=== PATIENT | male | born 1975 | race African-American/Black ===

== ENCOUNTER 2019-08-02 20:12 | Observation (INO) | payer OTHER, SELFPAY ==
[2019-08-02 20:13] VITALS: BP 175/119; PULSE 107; RESP 20; TEMP 36.7; O2SAT 100
--- NOTE | 2019-08-02 20:40 | ED_ITS ---
I attest that this documentation has been prepared under the direction and in the presence of Yanna Ojeda MD. Artem Myles Scribe 08/02/19;20:40 HPI - General Adult General Chief complaint: Unspecified Stated complaint: hallucinations Time Seen by Provider: 08/02/19 20:39 Source: patient and RN notes reviewed Mode of arrival: EMS Limitations: no limitations History of Present Illness HPI narrative: Pt is a 44 y/o male presenting to the ED via EMS c/o possible hallucination. Pt reports he called the Police stating someone was chasing him with a gun. Pt notes Police were unable to find evidence of anyone chasing the pt and were concerned the pt was hallucinating. Pt states he has had 1 episode of hearing voices in his head previously, but is unable to state how long ago that incident occurred. Pt states he does not have a Hx of Pyschiatric problems. Pt reports fatigue, tremor for a few days, and decreased PO intake of food and fluids due to being busy , but denies cough, ST, or rhinorrhea. Pt notes he currently resides at a homeless group home and reports he has been homeless for a few months. Pt reports Hx's of Sz's in which he is no longer taking his medications for, asthma, and rt hip replacement. Pt notes he consumes various types of alcohol, but notes he does not drink every day and last consumed alcohol 2 days ago. Pt denies a Hx of drug use and states he is not a smoker. Related Data Home Medications Medication Instructions Recorded Confirmed Unable to Obtain Home Medications 08/02/19 08/02/19 Allergies Allergy/AdvReac Type Severity Reaction Status Date / Time No Known Allergies Allergy Verified 08/02/19 20:17 Course Vital Signs Vital signs: Vital Signs Temperature 36.7 C 08/02/19 20:13 Pulse Rate 107 H 08/02/19 20:13 Respiratory Rate 20 08/02/19 20:13 Blood Pressure 175/119 H 08/02/19 20:13 Pulse Oximetry 100 08/02/19 20:13 Temperature 36.7 C 08/02/19 20:13 Pulse Rate 107 H 08/02/19 20:13 Respiratory Rate 20 08/02/19 20:13 Blood Pressure 175/119 H 08/02/19 20:13 Pulse Oximetry 100 08/02/19 20:13 Medical Decision Making Vital Signs Vital Signs: Vital Signs Temperature 36.7 C 08/02/19 20:13 Pulse Rate 107 H 08/02/19 20:13 Respiratory Rate 08/02/19 20:13 Blood Pressure 175/119 H 08/02/19 20:13 Pulse Oximetry 100 08/02/19 20:13 Temperature 36.7 C 08/02/19 20:13 Pulse Rate 107 H 08/02/19 20:13 Respiratory Rate 08/02/19 20:13 Blood Pressure 175/119 H 08/02/19 20:13 Pulse Oximetry 100 08/02/19 20:13 Discharge Plan Discharge Prescriptions: No Action Unable to Obtain Home Medications RF: 0
--- NOTE | 2019-08-02 20:52 | ECG_ITS ---
Measurements Intervals [place] Rate: 107 P: 52 NM: 145 QRS: 32 QRSD: 85 T: 43 QT: 295 QTc: 395 Interpretive Statements SINUS TACHYCARDIA BASELINE ARTIFACT- I, III, AVL ABNORMAL ECG Electronically Signed On 08-03-2019 8:23:37 CDT by Dereck Almodovar D.O.
--- NOTE | 2019-08-02 20:57 | ED.PSYCH ---
HPI - Psych General Chief Complaint: Unspecified Stated Complaint: hallucinations Time Seen by Provider: 08/02/19 20:39 Source: patient and RN notes reviewed Mode of arrival: EMS Limitations: no limitations History of Present Illness HPI Narrative: Pt is a 44 y/o male presenting to the ED via EMS c/o possible hallucination. Pt reports he called the Police stating someone was chasing him with a gun earlier today. Pt notes Police were unable to find evidence of anyone chasing the pt and were concerned the pt was hallucinating. Pt states he has had 1 episode of hearing voices in his head previously, but is unable to state how long ago that incident occurred. Pt states he does not have a Hx of Pyschiatric problems. Pt reports fatigue, tremor for a few days, and decreased PO intake of food and fluids due to being busy , but denies cough, ST, or rhinorrhea. Pt notes he currently resides at a homeless [place] [facility] and reports he has been homeless for a few months. Pt reports Hx's of Sz's in which he is no longer taking his medications for, asthma, and rt hip replacement. Pt notes he consumes various types of alcohol, but notes he does not drink every day and last consumed alcohol 2 days ago. Pt denies a Hx of drug use and states he is not a smoker. Onset (ago): unknown (Earlier today) Associated psychiatric symptoms: auditory hallucinations Associated symptoms: other (Fatigue; Tremor; Decreased PO intake of food and fluids) Related Data Home Medications Medication Instructions Recorded Confirmed albuterol sulfate 1 puff INHALATION QID PRN 08/03/19 08/03/19 Allergies Allergy/AdvReac Type Severity Reaction Status Date / Time cheese AdvReac Mild Nausea and Verified 08/03/19 04:07 Vomiting Review of Systems Review of Systems: All systems reviewed & are unremarkable except as noted in HPI and below Constitutional: Constitutional: Reports fatigue and Reports other (Decreased PO intake of food and fluids) ENT: Denies sore throat and Denies other (Rhinorrhea) Respiratory: Respiratory: Denies cough Neurologic: Reports tremor(s) Psychiatric: Psychiatric: Reports auditory hallucinations (Hearing voices) and Reports visual hallucinations PMFSH Past Medical History Medical History Asthma Seizures Surgical History Surgical History History of right hip replacement Social History Social History Smoking status: Never smoker Second hand tobacco smoke exposure: No Alcohol intake: current Drinks per week: 4 Substance use: former Substance use type: marijuana Gender identity (if verbalized by the patient): Male Spiritual care concerns: No Agree to blood products: Yes Exam Const: General: cooperative, no acute distress and alert Nutritional Appearance: well nourished Limitations: no limitations HENMT: Mouth: Yes lip normal and Yes moist mucous membranes Resp: Effort & Inspection: normal respiratory effort Auscultation: clear to auscultation bilaterally Cardio: Rate: tachycardic (Mildly) Rhythm: regular rhythm Heart sounds: no murmurs GI: GI Palp: Yes Soft to palpation and No Tenderness to palpation present (GI) Auscultation: normal bowel sounds Skin: General skin exam: normal color Neuro: General: patient oriented x3 Cognition (Neuro): normal cognition Speech: normal speech Motor exam (neuro): Tremors during motor activity present (Mild) Extrem: General: normal to inspection, full ROM and no clubbing, cyanosis or edema Psych: Speech and movement: Clear speech present Affect: Anxious affect present (Slightly) and Blunted affect present Attitude: cooperative Course Course Emergency Course: Patient given Ativan and IV fluids. Blood pressure and heart rate improved with Ativan. On further questioning, patient does report drinking pretty heavily before being taken into po
[2019-08-02 21:14] LABS: Basophils Percent Auto 0.3 % (0.2-1.2); Hemoglobin 13.2 g/dL (14.0-18.0); Immature Granulocyte Absolute 0.01 K/mm3 (0.00-0.031); Immature Granulocyte Percent A 0.1 % (0-0.5); Lymphocytes Absolute Auto 0.63 K/mm3 (0.9-3.2); Lymphocytes Percent Auto 8.3 % (18.3-44.2); Mean Corpuscular HGB Conc 33.8 g/dl (32-36); Mean Corpuscular Hemoglobin 29.9 pg (26-34); Mean Corpuscular Volume 88.4 fl (80-100); Mean Platelet Volume 11.4 fl (7.4-10.4); Monocytes Absolute Auto 0.6 K/mm3 (0.1-0.6); Monocytes Percent Auto 8.2 % (2.6-8.5); Neutrophils Absolute Auto 6.3 K/mm3 (1.3-6.7); Neutrophils Percent Auto 83.1 % (45.5-73.1); Platelet Count Result 78 k/mm3 (150-375); Red Blood Count 4.41 M/mm3 (4.6-6.20); Red Cell Distribution Width 12.3 % (11.5-14.5); White Blood Count 7.6 K/mm3 (4.5-10.0)
[2019-08-02] MEDS: LORAZEPAM INJ 2 MG/ML VIAL 1 MG IV PUSH ×2 (21:18→23:32)
[2019-08-02] MEDS: LACTATED RINGERS 1,000 ML 999 ML IV CONT ×2 (21:19→23:32)
[2019-08-02 21:21] LABS: Prothrombin Time 12.8 Seconds (11.1-14.7)
[2019-08-02 21:22] LABS: Partial Thromboplastin Time 23.8 SECONDS (22.3-36.8)
[2019-08-02 22:31] LABS: Ethanol < 10 mg/dL (<10)
[2019-08-02 22:32] LABS: Alanine Aminotransferase 47 U/L (4-50); Albumin Level 4.6 g/dL (3.5-5.1); Alkaline Phosphatase 74 U/L (38-126); Aspartate Amino Transferase 117 U/L (17-59); Bilirubin,Total 1.1 mg/dL (0.2-1.3); Blood Urea Nitrogen 41 mg/dL (9-20); Calcium 9.8 mg/dL (8.4-10.2); Carbon Dioxide 26 mmol/L (22-30); Chloride 97 mmol/L (98-107); Estimated Glomerular Filt Rate > 60; Glucose 118 mg/dL (75-110); Sodium 132 mmol/L (137-145)
[2019-08-02 22:37] LABS: Magnesium 1.9 mg/dL (1.6-2.3)
[2019-08-02 22:43] LABS: Creatine Kinase 2582 U/L (55-170)
[2019-08-02 23:14] LABS: Add Urine Microscopic? YES; Amphetamine Screen Urine Negative (Negative); Appearance Urine Clear (Clear); Barbiturate Screen Urine Negative (Negative); Benzodiazepines Screen Urine Negative (Negative); Bilirubin Urine Negative (Negative); Blood Urine 2+ (Negative); Cannabinoid Screen Urine Negative (Negative); Cocaine Screen Urine Negative (Negative); Color Urine Yellow (Yellow); Glucose Urine UA Negative (Negative); Ketones Urine 1+ mg/dL (Negative); Leukocyte Esterase Ur Negative LEU/UL (Negative); Methadone Screen Urine Negative (Negative); Mucus Urine Few /lpf; Nitrate Urine Negative (Negative); Opiate Screen Urine Negative (Negative); Phencyclidine Screen Urine Negative (Negative); Protein Urine 2+ mg/dL (Negative); RBC Urine 0-2 /hpf (0-2); Specific Grav Ur 1.026 (1.001-1.035)
[2019-08-02 23:20] VITALS: BP 150/103; PULSE 110; RESP 20; O2SAT 100
--- NOTE | 2019-08-02 23:26 | PC.NURSE ---
assuming care of pt at this time, received report from seth vides
[2019-08-02] MEDS: CHLORDIAZEPOXIDE 25 MG CAPSULE 50 MG PO (23:32)
[2019-08-03] VITALS (12 sets, daily range): BP systolic 131–155; BP diastolic 71–91; PULSE 77–112; RESP 16–25; TEMP 36.1–37; O2SAT 99–100; BMI 24.1
--- NOTE | 2019-08-03 03:16 | ADMGEN ---
This patient, Sara Rodriguez, was admitted to IMU Room 231-01 on 08/03/19 at 0300. Patient/family oriented to hospital policies and general routines including ID bracelet, bed and alarms, visiting hours, pain management, procedures, bathroom and other care routines, personal items, smoking policy, room service/diet, and visiting hours. Valuables list has been completed. Information on how to activate the Rapid Response Team has been discussed. Patient/Family are encouraged to report perceived risks to care and to ask questions if they do not understand what they are told or what they should do.
[2019-08-03] MEDS: LACTATED RINGERS 1,000 ML 150 ML IV CONT ×3 (03:45→20:02)
--- NOTE | 2019-08-03 05:30 | PC.NURSE ---
Daylight Savings Time For Daylight Savings Time Ending in the Fall - Clocks are moved back. For Daylight Savings Time Beginning in the Spring - Clocks are moved ahead. For [facility], the time of change occurs at 0200 hrs. Time is taken from the manager [employer]. This entry on the patient's chart recognizes the change in time reflected during documentation. Example: 2 entries for vital signs may be charted for 0200 hrs.
[2019-08-03] MEDS: CHLORDIAZEPOXIDE 25 MG CAPSULE 50 MG PO (06:09)
--- NOTE | 2019-08-03 10:00 | PM.IMHP ---
H&P: HPI History of Present Illness Chief complaint: ALCOHOL WITHDRAWL,RHABDOMYOLYSIS Narrative: Sara Rodriguez is a 44 year old male who has been fairly healthy. He was jailed for 2 days from July 29 to July 31 due to an outstanding warrant for trespassing. He did not drink from July 31 until he began hallucinating on August 01. He called the police because he thought someone was chasing him with a gun. Prior to being jailed he had been staying at a hotel and drinking fairly heavily on an intermittent basis. Maybe every other day. He last strength before he was jailed. He has a history of alcohol withdrawal seizures and alcohol withdrawal hallucinations. He has never been through alcohol rehab. He binge drinks every 2-3 days. 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 He was staying there with someone else for the 1st 2 days and then was on his and drinking fairly heavily up until the time he was jailed. He denied recreational drug use and tobacco use. He denied any family history of alcoholism. Review of Systems Review of Systems: All systems reviewed & are unremarkable except as noted in HPI and below PMFSH Past Medical History Medical History Asthma Seizures Surgical History Surgical History History of right hip replacement Family History Family History (Updated 08/03/19 @ 10:32 by Wero Arellano MD) Mother Breast cancer Diabetes mellitus Hypertension Father No problems noted. 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 Gender identity (if verbalized by the patient): Male Spiritual care concerns: No Agree to blood products: Yes Meds Home Medications and Allergies Home Medications Medication Instructions Recorded Confirmed Type albuterol sulfate 1 puff INHALATION QID PRN 08/03/19 08/03/19 History Allergies Allergy/AdvReac Type Severity Reaction Status Date / Time cheese AdvReac Mild Nausea and Verified 08/03/19 04:07 Vomiting Vital Signs Vital Signs - 24 hr 08/02/19 20:13 08/02/19 23:20 08/03/19 00:33 Temperature 98.0 F Pulse Rate 107 H 110 H 99 Pulse Rate [Monitor] Respiratory Rate 20 20 19 Blood Pressure 175/119 H 150/103 H 155/78 H Pulse Oximetry 100 100 100 08/03/19 01:31 08/03/19 01:34 08/03/19 03:00 Temperature 97.8 F Pulse Rate 109 H 108 H 112 H Pulse Rate [Monitor] 106 H Respiratory Rate 22 H 25 H 20 Blood Pressure 132/84 131/71 151/91 H Pulse Oximetry 100 99 100 08/03/19 04:00 08/03/19 04:46 08/03/19 06:00 Temperature 96.9 F L Pulse Rate 88 97 77 Pulse Rate [Monitor] 97 Respiratory Rate 16 16 Blood Pressure 135/76 135/76 Pulse Oximetry 100 100 Exam Narrative: Exam Narrative: HEENT: EOMI, PERRL, sclerae nonicteric, pharyngeal mucosa pink and intact NECK: No JVD, adenopathy, or thyromegaly CHEST: Clear to auscultation. Normal effort. HEART: NL S1/S2, regular, no murmur ABDOMEN: BS+, soft, nontender, no mass, no bruits EXTREMITIES: No cyanosis, edema, or clubbing NEUROLOGIC: CN intact and symmetric to inspection. MUSCULOSKELETAL: Tone and strength symmetric. PSYCH: Alert. Oriented to person, place, and time. H&P: Results Labs Labs: Short CBC 08/02/19 Range/Units 21:05 WBC 7.6 (4.5-10.0) K/mm3 Hgb 13.2 L (14.0-18.0) g/dL Hct 39.0 L (42.0-52.0) % Plt Count 78 L (150-
[2019-08-03 10:50] LABS: Alanine Aminotransferase 45 U/L (4-50); Albumin Level 4.1 g/dL (3.5-5.1); Alkaline Phosphatase 65 U/L (38-126); Aspartate Amino Transferase 106 U/L (17-59); Bilirubin,Total 1.3 mg/dL (0.2-1.3); Blood Urea Nitrogen 26 mg/dL (9-20); Calcium 9.4 mg/dL (8.4-10.2); Carbon Dioxide 25 mmol/L (22-30); Chloride 100 mmol/L (98-107); Estimated CRCL calculation 107 ml/min; Estimated Glomerular Filt Rate > 60; Glucose 91 mg/dL (75-110); Potassium 3.5 mmol/L (3.4-5.0); Sodium 132 mmol/L (137-145)
[2019-08-03 11:05] LABS: Hematocrit 35.6 % (42.0-52.0); Hemoglobin 12.2 g/dL (14.0-18.0); Immature Platelet Fraction Pct 5.3 % (0.9-11.2); Mean Corpuscular HGB Conc 34.3 g/dl (32-36); Mean Corpuscular Hemoglobin 30.1 pg (26-34); Mean Corpuscular Volume 87.9 fl (80-100); Mean Platelet Volume 10.8 fl (7.4-10.4); Platelet Count Result 54 k/mm3 (150-375); Red Blood Count 4.05 M/mm3 (4.6-6.20); Red Cell Distribution Width 11.9 % (11.5-14.5); White Blood Count 4.1 K/mm3 (4.5-10.0)
[2019-08-03 11:22] LABS: Creatine Kinase 2363 U/L (55-170)
[2019-08-03] MEDS: CHLORDIAZEPOXIDE 25 MG CAPSULE PO ×2 (12:01→17:59)
[2019-08-04 00:08] VITALS: BP 144/81; PULSE 99; RESP 20; TEMP 37; O2SAT 100
[2019-08-04] MEDS: CHLORDIAZEPOXIDE 25 MG CAPSULE PO ×2 (00:25→05:20)
[2019-08-04] MEDS: LACTATED RINGERS 1,000 ML 150 ML IV CONT ×2 (02:21→09:21)
[2019-08-04 04:26] VITALS: BP 144/67; PULSE 83; RESP 20; TEMP 36.3; O2SAT 100
[2019-08-04 08:01] VITALS: BP 128/84; PULSE 78; RESP 18; TEMP 36.6; O2SAT 100
--- NOTE | 2019-08-04 11:17 | PM.DS ---
DS: Diagnosis Admitting Diagnosis Admitting Diagnosis: Alcohol dependence with withdrawal with perceptual disturbance Discharge Diagnosis (1) Alcohol withdrawal: Qualifiers: Complication of substance-induced condition: with perceptual disturbance Qualified Code(s): F10.232 - Alcohol dependence with withdrawal with perceptual disturbance Code(s): F10.239 - Alcohol dependence with withdrawal, unspecified Status: Acute Assessment and Plan: This is at least his 4th day without alcohol. Currently he is asymptomatic He declines alcohol rehab but does wish to move back to [place] with family there were he will have more social support and where he has seen physicians in the past. Home to family today with no withdrawal prophylaxis needed (2) Rhabdomyolysis: Qualifiers: Rhabdomyolysis type: non-traumatic Qualified Code(s): M62.82 - Rhabdomyolysis Code(s): M62.82 - Rhabdomyolysis Status: Acute Assessment and Plan: Unclear etiology unclear patient has no recollection of trauma or lying in 1 position for an extended period of time Follow-up lab stable and suggestive of chronic CK elevation He has no signs or symptoms of myopathy at this time Patient plans follow-up with his primary care physician in [place] (3) Dehydration: Code(s): E86.0 - Dehydration Status: Acute Assessment and Plan: IV fluid hydration Follow-up lab (4) Pancytopenia: Code(s): D61.818 - Other pancytopenia Status: Acute Assessment and Plan: Suspect due to marrow suppression caused by alcohol Needs outpatient follow-up after abstaining from alcohol DS: Summary Hospital Course Reason for hospitalization: Hallucinations due to alcohol withdrawal Hospital Course: Admitted with alcohol withdrawal and hallucinations. Last drink was at least 1 day before July 29. He was hospitalized due to the hallucinations and treated for alcohol withdrawal with chlordiazepoxide he did not require p.r.n. lorazepam he had no further symptoms while hospitalized. Tolerated diet. Remained alert and oriented to person place and time. Planned to go stay with family. He declined any referrals for alcohol rehab at this time. He was opening go to [place] where he has doctors who have seen him before. Time Spent with Patient Time attestation: Total time spent providing and/or coordinating discharge services: 31 min Exam Narrative: Exam Narrative: HEENT: EOMI, PERRL, sclerae nonicteric, pharyngeal mucosa pink and intact NECK: No JVD CHEST: Clear to auscultation. Normal effort. HEART: NL S1/S2, regular, no murmur ABDOMEN: BS+, soft, nontender, no mass, no bruits EXTREMITIES: No cyanosis, edema, or clubbing NEUROLOGIC: CN intact and symmetric to inspection. MUSCULOSKELETAL: Tone and strength symmetric. PSYCH: Alert. Oriented to person, place, and time. DS: Data Data Completed and Pending Labs on day of discharge: Labs from last 24 hours 08/03/19 10:23 Total Creatine Kinase 2363 H Discharge Plan Discharge Discharging Clinician: Wero Arellano Patient Disposition: Home, Self-Care Activity: as tolerated Diet: regular Patient Instructions: Antibiotic Form, Abuse of Alcohol (DC), Alcohol Withdrawal (DC) Stand Alone Forms: General Discharge Information Follow-up/Referrals: PHYSICIAN,LICENSED OCCUPATIONAL THERAPIST [Primary Care Provider] - 1 Week (patient plans to see pcp in [place], [place]) Discharge Medications: Continued albuterol sulfate 90 mcg/actuation Hfa Aerosol Inhaler 1 puff INHALATION QID PRN (Reason: Shortness Of Breath Or Wheezing) RF: 0 Date of admission: 08/03/19 00:44 Primary Care Provider: PHYSICIAN,LICENSED OCCUPATIONAL THERAPIST Admitting Provider: Effie Galeano Attending physician on admission: Effie Galeano Condition: Stable
[2019-08-04 11:47] LABS: Hematocrit 32.4 % (42.0-52.0); Hemoglobin 10.8 g/dL (14.0-18.0); Mean Corpuscular HGB Conc 33.3 g/dl (32-36); Mean Platelet Volume 10.1 fl (7.4-10.4); Platelet Count Result 58 k/mm3 (150-375); Red Cell Distribution Width 11.8 % (11.5-14.5); White Blood Count 3.2 K/mm3 (4.5-10.0)
[2019-08-04 11:58] LABS: Creatine Kinase 1407 U/L (55-170)
[2019-08-04 12:12] LABS: Alanine Aminotransferase 40 U/L (4-50); Albumin Level 3.7 g/dL (3.5-5.1); Alkaline Phosphatase 67 U/L (38-126); Aspartate Amino Transferase 79 U/L (17-59); Bilirubin,Total 0.7 mg/dL (0.2-1.3); Blood Urea Nitrogen 15 mg/dL (9-20); Calcium 8.9 mg/dL (8.4-10.2); Carbon Dioxide 27 mmol/L (22-30); Chloride 104 mmol/L (98-107); Estimated CRCL calculation 107 ml/min; Estimated Glomerular Filt Rate > 60; Glucose 97 mg/dL (75-110); Potassium 3.5 mmol/L (3.4-5.0); Sodium 136 mmol/L (137-145)
== END 2019-08-04 13:25 | disposition home or self-care (01) ==
LOC: ANHED 21:27 → ANHIMU 08-03 01:18
PROVIDERS: Admitting Provider Internal Medicine; Emergency Provider Emergency Medicine; Visit Provider Internal Medicine
DX: F10.232 Alcohol dependence with withdrawal with perceptual disturbance (principal); M62.82 Rhabdomyolysis; E86.0 Dehydration; D61.818 Other pancytopenia; J45.909 Unspecified asthma, uncomplicated; Z59.0 Homelessness; Z96.641 Presence of right artificial hip joint; R53.83 Other fatigue
CPT/HCPCS: 36415; 80053; 80307; 81001; 82550; 83735; 84443; 85025; 85027; 85055; 85610; 85730; 93005; 96360; 96361; 96374; 96376; 99285; A9270; G0378; G0379; J2060; J7120